=== PATIENT | male | born 1980 | race Caucasian/White ===

== ENCOUNTER 2022-09-20 07:02 | Day surgery (SDC) | payer OTHER ==
--- NOTE | 2022-09-19 11:04 | HP ---
DATE OF SURGERY: 09/20/2022 HISTORY OF PRESENT ILLNESS: The patient is a 41-year-old male who presented with an episode of diverticulitis. He was having some right lower quadrant pain. 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 This is the first episode for this. PAST MEDICAL HISTORY: None. PAST SURGICAL HISTORY: Hand surgery. ALLERGIES: NKDA. MEDICATIONS: None. FAMILY HISTORY: None. SOCIAL HISTORY: None. REVIEW OF SYSTEMS: CONSTITUTIONAL: Denies fever or chills. CHEST: Denies shortness of breath. CVS: Denies chest pain. ABDOMEN: Reports right lower quadrant pain. PHYSICAL EXAMINATION: GENERAL: No acute distress. CHEST: Nonlabored. No shortness of breath. CVS: Regular rate and rhythm. ABDOMEN: Soft. IMPRESSION: First episode of diverticulitis. PLAN: Colonoscopy with Dr. Wild Bolden. As dictated by Idalmis Nicole NP.
[~2022-09-20 07:02] MED LIST: Lactated Ringers 1,000 ML IV SCH
[2022-09-20] MEDS ORDERED: Lactated Ringers 1,000 ML IV ONE (07:26)
[2022-09-20] MEDS ORDERED: Xylocaine-Mpf 2% 5 Ml Vial ONE (09:15)
[2022-09-20] MEDS ORDERED: DIPRIVAN 200 MG/20 ML IV ONE ×2 (09:15→09:31)
[2022-09-20] MEDS ORDERED: GlucaGen 1 MG ONE (09:27)
[2022-09-20 10:22] VITALS: BP 121/76; PULSE 70; O2SAT 98
--- NOTE | 2022-09-20 10:55 | OP ---
SURGERY DATE/TIME: 09/20/2022 0919 PREOPERATIVE DIAGNOSIS: Follow up diverticulitis. POSTOPERATIVE DIAGNOSIS: The patient has very mild diverticulosis. He does have a little spasm of his colon. He does have a generous colon. PROCEDURE: Colonoscopy complete to appendix. SURGEON: Wild Bolden M.D. JUNIOR PARALEGAL: Esteban Walker D.O. ANESTHESIA: MAC. COMPLICATIONS: None. CONDITION: Stable. DESCRIPTION OF PROCEDURE: Patient taken to endoscopy. MAC sedation provided. Anal digital examination satisfactory. Tone satisfactory. Prostate satisfactory. Scope advanced. There was certainly some redundancy of the sigmoid which came all the way over to the right side. There was clearly a little spasm in the sigmoid and some Glucagon was given. He had diverticulosis just a few scant pouches. No signs of acute inflammation today. The scope is advanced to the cecum. Base of the cecum, ileocecal valve, appendiceal orifice was normal. Ascending, hepatic, transverse, splenic, descending was normal. Sigmoid as noted a little redundant and a little large diameter and a little spastic. Rectum, anus satisfactory. Follow up five years.
== END 2022-09-20 10:32 | disposition home or self-care (01) ==
LOC: EDBD → SDC 07:02
PROVIDERS: ATTEND Surgery
DX: K57.30 Diverticulosis of large intestine without perforation or abscess without bleeding (principal); K57.32 Diverticulitis of large intestine without perforation or abscess without bleeding
CPT/HCPCS: J1610; J2704